=== PATIENT | male | born 1955 | race Caucasian/White ===

== ENCOUNTER 2016-10-29 18:13 | Observation (INO) | payer BC, OTHER ==
[~2016-10-29] VITALS: Ht 175.3 cm; Wt 111.1 kg
[2016-10-29] MEDS ORDERED: CIPROFLOXACIN 500 MG TAB PO STA (18:44)
[2016-10-29] MEDS ORDERED: CIPROFLOXACIN 500 MG TAB ONE (18:51)
[2016-10-29] MEDS ORDERED: FURO-85 PO (19:10)
[2016-10-29] MEDS ORDERED: ACETAMINOPHEN 325 MG TAB PO PRN (19:15)
[2016-10-29] MEDS ORDERED: KETOROLAC TROMETHAMINE 30 MG/ML VIAL IV. PRN (19:15)
[2016-10-29] MEDS ORDERED: HYDROCODONE/ACETAMOPHEN 5/325MG TAB PO PRN (19:15)
[2016-10-29] MEDS ORDERED: BELLADONNA/OPIUM SUPP 60 MG SUPP PR PRN (19:15)
--- NOTE | 2016-10-29 19:46 | History and Physical ---
History Date of Service: Oct 29, 2016. Chief Complaint: clot retention Primary Care Physician: Louise Bailey MD Pt seen a urologist before?: Yes If yes, why?: bph History of Present Illness Patient had TURP this am. He noted increasingly bloody urine and then since 3pm no urine output. he called me at 5pm and agreed to come to ER. Her is ER he has an ounce of blood in catheter bag. He is in obvious discomfort. He is staying with his sister obie. Laboratory Labs were reviewed and are within normal limits unless listed below. Labs are available in the chart and at [facility] Social History Smoking: non-smoker Marital status: Housing status: lives alone Allergies Coded Allergies: Tramadol (Unverified Allergy, Unknown, HEADACHE, 10/29/16) Review of Systems Review of Systems Constitutional: No chills, No fever Neurological: No dizzy Endocrine: + excessive thirst Gastrointestinal: + abdominal pain, No nausea, No vomiting Male : + blood in urine, + urinary retention Physical Exam Vital Signs: Vital Signs Past 12 Hours Date Time Temp Pulse Resp B/P Pulse Ox O2 Delivery O2 Flow Rate FiO2 10/29/16 18:19 36.3 131 26 217/118 95 Room Air Physical Exam: General Appearance: WD/WN, + severe distress, + obese Eyes: bilateral eyes normal inspection Genitourinary - Male: Penis: normal penis Urethral Meatus: normal urethral meatus, position, pertinent finding (decker appears to be in proper location and is secured to left thigh leg strap. ) Epididymides: mass Extremities: non-tender, normal inspection, no pedal edema, no calf tenderness Neurologic/Psychiatric: alert, normal mood/affect, oriented x 3 Assessment & Plan Assessment & Plan urinary clot retention I was able to irrigate him easily at bedside. i removed about 2 tablespoon of clot and drained 800mL of urine. He had immediate relief. I irrigated him with 1200mL of saline and got him to near clear. I then observed his drainage for another 30 minutes. His sister is willing to try irrigation at home if he clogs overnight. I gave 500mg cipro once here to cover this irrigation. In about 40 minutes the urine was more of a light kendrick color. Given his distance from the hospital, and the threat of icy weather overnight and in am, we agree to bring him in overnight for observation. I think he will not clog up but we can observe him and run some iv fluids overnight to keep the urine output up. 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 DVT rx- he cannot have blood thinners due to gross hematuria but will have scds and will ambulate. He will take his usual lasix 20mg in am. regular diet.
[2016-10-29] MEDS ORDERED: IV FLUIDS COMPLETED PRN (21:00)
[2016-10-29 22:18] VITALS: BP 110/69; PULSE 69; TEMP 37.1; O2SAT 92; Ht 175.3 cm; Wt 111.1 kg
[2016-10-29 23:01] VITALS: BP 123/77; PULSE 69; TEMP 36.4; O2SAT 94
[2016-10-29] MEDS: SODIUM CHLORIDE 0.9% 1000ML 1,000 ML IV SCH (23:49)
[2016-10-30 07:01] VITALS: BP 144/78; PULSE 70; TEMP 36.6; O2SAT 94
[2016-10-30] MEDS: SODIUM CHLORIDE 0.9% 1000ML 1,000 ML IV SCH ×2 (07:08→10:29)
[2016-10-30] MEDS ORDERED: FUROSEMIDE 20 MG TAB PO SCH (09:00)
--- NOTE | 2016-10-30 09:30 | Progress Note ---
Subjective Date of Service: Oct 30, 2016. Subjective Pt evaluation today including: conversation w/ patient, physical exam, conversation w/ individual pension consultant Voiding: decker catheter in place Patient had no further clogging of catheter overnight. Urine is still light red. He had his lasix this am. He is drinking lots of fluids. He had a hard time sleeping last night like when he is on steroids for his back. He may have had iv steroids as part of his anesthetic yesterday. Review of Systems Constitutional: No chills, No fatigue, No sweats Cardiac: No chest pain, No palpitations Abdomen: No nausea, No vomiting Male : + hematuria Objective Vital Signs Date Time Temp Pulse Resp B/P Pulse Ox O2 Delivery O2 Flow Rate FiO2 10/30/16 07:27 Room Air 10/30/16 07:01 36.6 70 16 144/78 94 Room Air 10/30/16 00:00 Nasal Cannula 2.0 10/29/16 23:01 36.4 69 16 123/77 94 Room Air 10/29/16 22:18 37.1 69 16 110/69 92 Room Air 10/29/16 20:12 82 16 122/77 94 10/29/16 18:19 36.3 131 26 217/118 95 Room Air Physical Exam General Appearance: WD/WN, no apparent distress, + obese ENT: hearing grossly normal Cardiovascular: no edema Extremities: non-tender, normal inspection, no pedal edema, normal capillary refill Neurologic/Psychiatric: alert, normal mood/affect, oriented x 3 Comments: - [address] draining light red urine. no clots Assessment and Plan Clot retention POD0 after turp was irrigated once in ER and no further clots noted. he may go home today drink plenty of fluids. If he has more problems with clot he may simply remove the catheter at home. If he does not clog up he may remove the catheter on Tuesday. He is agreeable to plan.
--- NOTE | 2016-10-30 09:33 | Discharge Instructions ---
Discharge Instructions Date of Service Oct 30, 2016. Admission Reason for Admission: Hematuria, Gross Discharge Discharge Diagnosis / Problem: gross hematuria with clot retention Discharge Goals Goal(s): Decrease discomfort, Improve function Activity Recommendations Activity Limitations: as noted below Lifting Limitations: no more than 25 pounds (for 3 weeks) Exercise/Sports Limitations: none Shower/Bathe: no limitations Driving or Machine Use: no limitations . Instructions / Follow-Up Instructions / Follow-Up if catheter gets clogged up today or tomorrow, remove it if catheter drains fine, remove it Tuesday. call with problems Current Hospital Diet Hospital Diet(s): Regular Diet Discharge Diet Recommended Diet: Regular Diet Fluid Restriction: None Procedures Procedures Performed: irrigation of obstructing clots from bladder Pending Studies Studies pending at discharge: no Medical Emergencies . Who to Call and When: Medical Emergencies: If at any time you feel your situation is an emergency, please call 911 immediately. . Non-Emergent Contact Non-Emergency issues call your: Urologist Call Non-Emergent contact if: temperature is above 100.5 . . "Provider Documentation" section prepared by Louise Bailey. VTE Core Measure Inpt VTE Proph given/why not?: SCD's
[2016-10-30] MEDS ORDERED: CIPROFLOXACIN 500 MG TAB PO STA (09:49)
--- NOTE | 2016-10-30 09:49 | Discharge Summary ---
Discharge Summary Date of Service Oct 30, 2016. Discharge Summary Admission Date: Oct 29, 2016 at 19:16 Discharge Date: Oct 30, 2016 Discharge Disposition: Home Principal Diagnosis: gross hematuria with clot retention Medication Reconciliation Continued Medications: Furosemide (Lasix) 20 Mg Tab 20 MG PO QAM, TAB Admission Information HPI (per Admitting provider): Patient presented evening of 10/29/16 with painful clot retention. He is POD#0 TURP. His urine had turned bloody about 4 hours after surgery when he was up moving around. Physical Exam (per Admitting): Patient was in moderate distress and had distended bladder. He had no fluid overload or breathing difficulties. Hospital Course Patient had a clot irrigation in the ER and drained about 800mL bloody urine. Irrigation yielded about 2 tablespoon of clot. His urine was kendrick after indicating continued slow bleeding. He was observed overnight and had one additional episode of clot retention mid morning 10/30/16 and bedside irrigation yielded one teaspoon size clot. Total time spent on discharge = This includes examination of the patient, discharge planning, medication reconciliation, and communication with other providers. Discharge Instructions drink extra fluids until bleeding stops if catheter clogs remove it. if catheter stays patent remove it Tuesday am.
[2016-10-30 11:04] VITALS: O2SAT 96
[2016-10-30 11:42] VITALS: BP 144/78; PULSE 70; TEMP 36.6; O2SAT 96
== END 2016-10-30 14:17 | disposition home health service (06) ==
LOC: ENRESERVDT → ENRESERVTM → C.EDB 18:14 → C.MSW 19:16
PROVIDERS: ADMIT Urology; ATTEND Urology
DX: N99.89 Other postprocedural complications and disorders of genitourinary system (principal); R31.0 Gross hematuria; R33.8 Other retention of urine